=== PATIENT | female | born 1990 | race Caucasian/White ===

== ENCOUNTER 2016-05-09 17:24 | Emergency (ER) | payer OTHER ==
[~2016-05-09] VITALS: Ht 157.5 cm; Wt 45.5 kg
[~2016-05-09 17:24] MED LIST: MOT800 PO; PER5 PO
[2016-05-09 17:28] VITALS: BP 114/72; PULSE 92; RESP 16; O2SAT 99
--- NOTE | 2016-05-09 17:55 | ED.REPORT ---
HPI-Dental/Mouth Prob Date of Service May 09, 2016 ED Provider: Janette Beaulieu History of Present Illness: tooth pain since last night maybe a wisdom tooth, she thinks. no dental care, no primary care. 8/10 pain is on the lower left. Nursing Notes Stated Complaint: DENTAL PAIN Chief Complaint: Dental Nursing Notes Reviewed: Yes Allergies: Coded Allergies: sulfamethoxazole (Verified Allergy, Intermediate, Hives, 05/09/16) trimethoprim (Verified Allergy, Intermediate, Hives, 05/09/16) Scheduled PRN IBUPROFEN-Expunged Drug, Do Not Renew! (Motrin-Expunged Drug, Do Not Renew!) 800 Mg Tablet 800 MG PO Q6 PRN PRN For Pain oxyCODone/APAP-Expunged, Do Not Renew! 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 [employer] Ambulatory Status Independent Review of Systems Basic Review of Systems Eyes: Vision NL, No discharge Hematologic: No bleeding, No bruising Psychiatric: Normal thought content Physical Exam Initial Vital Signs Vital Signs (First) Date Time Temp Pulse Resp B/P Pulse Ox O2 Delivery O2 Flow Rate FiO2 05/09/16 17:28 36.8 92 16 114/72 99 Room Air Initial VS: Reviewed, Vital signs normal General/Constitutional: Well-developed, Well-nourished Head / Eyes: Atraumatic, Normocephalic, PERRL Respiratory: Breath sounds normal, Clear to auscultation, No respiratory distress Cardiovascular: Regular rate & rhythm, Heart sounds normal, Intact distal pulses Abdomen / GI: Soft, Non-tender, No guarding, No rebound, No distention Back: No CVA tenderness Lymphatic: No lymphadenopathy Extremities: Vascular intact, Neuro intact, No swelling, No tenderness Skin: Warm, Dry, No cyanosis Neurologic: Alert, Oriented, Nonfocal Psychiatric: Mood/affect normal, Behavior normal, Normal thought content ENT: Atraumatic, Airway patent, Mucous membranes moist, Pharynx NL left lower wisdom tooth is erupting with the gum surrounding the partially erupted tooth swollen and erthyma. Able to open mouth 3 finger wide, no trismus noted. Neck: Atraumatic, Supple, No meningismus, Full range of motion General/Constitutional: Awake, Alert, No acute distress Head / Eyes: Atraumatic, Normocephalic, PERRL Respiratory / Chest: Atraumatic, Breath sounds NL, Breath sounds = bilat, No respiratory distress Cardiovascular: Heart rate NL, Regular rhythm, Heart sounds NL Neurologic: Oriented X3, Speech NL, No motor deficits Re-Eval/Medical Decision Med Decision/Clinical Course 25 year old female with 1 day of dental discomfort presents for an evualation. Exam indicates a gum infection around an erupting wisdom tooth. Patient does not show any sign of trismus. no sign of cellulits or TMJ syndrome. Exam is most consistent with pericornitis. Discharge & Departure Primary Impression: Acute pericoronitis Disposition: Home Discharge Condition All VS Reviewed: Yes Additional Instructions: The exam indicates the wisdom tooth on your lower left is coming in and the gum is infected around the tooth. Start amoxicillin 500 mg 3 times a day for 10 days. You received a toradol injection in the ER. Use the ketorolac pills 10 mg up to 4 times a day for 5 days. You can use hydrocodone 1 at night as needed for severe unrelenting pain. Please call a dentist for definitive care! [facility] can sometimes see walkins and they are open on Saturday. Please call them and see what is available. A list of resources is provided. Please establish in primary care. Referrals: Vikash Her MD (PCP) [facility] Emergency Dental [facility] EDSupervising Provider for APC: Raúl Renee MD copies to: Vikash eHr MD, Sue ARNP May 09, 2016 17:55
[2016-05-09] MEDS ORDERED: Ketorolac 30 mg/mL 2 mL Inj IM ONE (18:05)
== END 2016-05-09 18:26 | disposition home or self-care (01) ==
LOC: SED 17:24
DX: K05.20 Aggressive periodontitis, unspecified (principal); F17.200 Nicotine dependence, unspecified, uncomplicated; Z88.1 Allergy status to other antibiotic agents; Z88.2 Allergy status to sulfonamides
CPT/HCPCS: 96372; 99283; J1885